=== PATIENT | female | born 2000 | race Two or more races ===

== ENCOUNTER 2019-10-23 16:29 | Emergency (ER) | payer OTHER ==
[2019-10-23] MEDS ORDERED: Ketorolac INJ* 30 MG/ML 1 ML VIAL IV PUSH ONE (20:54)
[2019-10-23] MEDS ORDERED: PROCHLORPERAZINE INJ 5 MG/ML 2 ML VIAL IV ONE (20:54)
[2019-10-23] MEDS ORDERED: diPHENhydraMINE IV* 50 MG/ML 1 ml VIAL (BENADRYL) IV ONE (20:54)
[2019-10-23] MEDS ORDERED: Meclizine TAB* 12.5 MG PO ONE (20:55)
[2019-10-23] MEDS ORDERED: NS 0.9% 1000 ML** 1,000 ML IV ONE (20:55)
--- NOTE | 2019-10-23 21:02 | ED ---
Headache - HPI Summary HPI Summary: 19-year-old female presents with headache since yesterday. She starts it started with noise sensitivity and then she developed a headache. States that she did have light sensitivity that has improved. Has a history of nystagmus. She states she is dizzy. She admits to nausea vomiting. She denies any fevers. pain does radiate to her neck. No neck stiffness. She has had occasional cough. No chest pain or shortness of breath. Denies any sinus congestion. She was not around anyone who is sick. States she may have a history of migraines. She has been taking Tylenol ibuprofen for her pain without any relief. - History Of Current Complaint Chief Complaint: EDHeadache Stated Complaint: HEADACHE Time Seen by Provider: 10/23/19 20:43 - Allergies/Home Medications Allergies/Adverse Reactions: Allergies Allergy/AdvReac Type Severity Reaction Status Date / Time No Known Allergies Allergy Verified 10/23/19 16:36 Home Medications: Home Medications Acetaminophen TAB* [Tylenol TAB*] 325 mg PO Q6H PRN 10/23/19 [History Confirmed 10/23/19] Ibuprofen TAB* [Advil TAB*] 400 mg PO Q6H PRN 10/23/19 [History Confirmed ] PMH/Surg Hx/FS Hx/Imm Hx Endocrine/Hematology History: Denies: Hx Anticoagulant Therapy Respiratory History: Denies: Hx Asthma Infectious Disease History: No Infectious Disease History: Denies: Traveled Outside the [place] in Last 30 Days - Family History Known Family History: Negative: Seizure Disorder - Social History Occupation: Student Substance Use Type: Reports: None Smoking Status (MU): Never Smoked Tobacco Review of Systems Negative: Fever Positive: Photophobia Negative: Chest Pain Negative: Shortness Of Breath Positive: Vomiting, Nausea Positive: Headache All Other Systems Reviewed And Are Negative: Yes Physical Exam Triage Information Reviewed: Yes Vital Signs On Initial Exam: Initial Vitals Temp Pulse Resp BP Pulse Ox 100.0 F 84 19 129/83 100 10/23/19 16:34 10/23/19 16:34 10/23/19 16:34 10/23/19 16:34 10/23/19 16:34 Vital Signs Reviewed: Yes Appearance: Positive: Well-Appearing Skin: Positive: Warm, Dry Head/Face: Positive: Normal Head/Face Inspection Eyes: Positive: EOMI, RYAN, Conjunctiva Clear, Other: - nystagmus noted ENT: Positive: Pharynx normal, TMs normal Neck: Positive: Supple, Nontender, No Lymphadenopathy. Negative: Nuchal Rigidity Respiratory/Lung Sounds: Positive: Clear to Auscultation, Breath Sounds Present Cardiovascular: Positive: Normal, RRR Abdomen Description: Positive: Nontender, Soft Bowel Sounds: Positive: Present Musculoskeletal: Positive: Normal Neurological: Positive: Sensory/Motor Intact, Alert, Oriented to Person Place, Time, CN Intact II-III, Finger to Nose Psychiatric: Positive: Normal - Olga Coma Scale Best Eye Response: 4 - Spontaneous Best Motor Response: 6 - Obeys Commands Best Verbal Response: 5 - Oriented Coma Scale Total: 15 Procedures - Sedation Patient Received Moderate/Deep Sedation with Procedure: No Diagnostics - Vital Signs Vital Signs Temp Pulse Resp BP Pulse Ox 10/23/19 20:51 97.2 F 10/23/19 19:08 98.1 F 95 19 126/82 100 10/23/19 16:34 100.0 F 84 19 129/83 100 - Laboratory Result Diagrams: 10/23/19 21:32 10/23/19 21:32 Lab Statement: Any lab studies that have been ordered have been reviewed, and results considered in the medical decision making process. Re-Evaluation - Re-Evaluation First Eval Re-Evaluation Time: 22:28 Change: Improved Comment: headache resolved, feels tired Headache Course/Dx - Course Course Of Treatment: 19-year-old female presents with headache since yesterday. She starts it started with noise sensitivity and then she developed a headache. States that she did have light sensitivity that has improved. Has a history of nystagmus. She states she is dizzy. She admits to nausea vomiting. She denies any fevers. pain does radiate to her neck. No neck stiffness. She has had occasional cough. No chest pain or shortness of breath. Denies any sinus congestion. She was not around anyone who is sick. States she may have a history of migraines. She has been taking Tylenol ibuprofen for her pain without any relief. On exam has normal neuro exam except for nystagmus noted which patient states is chronic. Gave migraine cocktail and feeling better. lab work wnl. will discharge to have follow up with [facility]. patient understand and agrees with plan. - Diagnoses Differential Diagnosis/HQI/PQRI: Migraine, Tension Headache, Viral Syndrome Provider Diagnoses: Headache Discharge ED - Sign-Out/Discharge Documenting (check all that apply): Patient Departure - Discharge Plan Condition: Good Disposition: HOME Patient Education Materials: Acute Headache (ED) Referrals: [facility] [place] - Christopher CLARKE [Primary Care Provider] - Additional Instructions: Take Tylenol or ibuprofen for pain every 6 hours Follow up with [facility] within 5 days Return to ED if develop any new or worsening symptoms - Billing Disposition and Condition Condition: GOOD Disposition: Home
[2019-10-23 21:40] LABS: ABS Basophils 0.1 10^3/ul (0-0.2); ABS Eosinophils 0.1 10^3/ul (0-0.6); ABS Lymphocytes 3.1 10^3/ul (1.0-4.8); ABS Monocytes 0.6 10^3/ul (0-0.8); Eosinophil % 1.3 %; Hematocrit 36 % (35-47); Hemoglobin 12.3 g/dL (12.0-16.0); Lymphocyte % 45.4 %; Mean Corpuscular HGB Conc 34 g/dL (31-36); Mean Corpuscular Hemoglobin 26 pg (27-31); Mean Corpuscular Volume 77 fL (80-97); Platelet Count 255 10^3/uL (150-450); Red Blood Count 4.75 10^6 /uL (3.70-4.87); Red Cell Distribution Width 16 % (10-15); White Blood Count 6.8 10^3/uL (3.5-10.8)
[2019-10-23 21:56] LABS: ALT 10 U/L (7-52); AST 16 U/L (13-39); Albumin 4.5 g/dL (3.2-5.2); Albumin/Globulin Ratio 1.6 (1-3); Alkaline Phosphatase 62 U/L (34-104); Anion Gap 7 mmol/L (2-11); BUN/Creatinine Ratio 26.6 (8-20); Blood Urea Nitrogen 17 mg/dL (6-24); C Reactive Protein < 1.00 mg/L (<8.01); CO2 Carbon Dioxide 25 mmol/L (22-32); Calcium 9.1 mg/dL (8.6-10.3); Chloride 105 mmol/L (101-111); EGFR African American 143.1 (>60); EGFR Non-African American 118.3 (>60); Globulin 2.8 g/dL (2-4); Glucose 81 mg/dL (70-100); Magnesium 1.9 mg/dL (1.9-2.7); Potassium 3.5 mmol/L (3.5-5.0); Sodium 137 mmol/L (135-145); Total Protein 7.3 g/dL (6.4-8.9)
[2019-10-23 22:34] VITALS: BP 122/94
== END 2019-10-23 22:44 | disposition home or self-care (01) ==
LOC: ED 16:29
DX: R51 Headache (principal)
CPT/HCPCS: 36415; 80053; 83735; 85025; 86140; 96365; 96375; 99283; A9270-GY; J0780; J1200; J1885